=== PATIENT | male | born 1955 | race Hispanic/Latino ===

== ENCOUNTER 2021-06-21 14:05 | Emergency (ER) | payer MEDICARE ==
[2021-06-21 14:10] VITALS: BP 116/77
[2021-06-21] MEDS ORDERED: HYDROcodone/ACETAMINOPHEN 5-325 MG TAB PO ONE (18:46)
--- NOTE | 2021-06-21 18:50 | Event Note ---
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 Patient states he has been off of pain meds for 6 months He denies any new injuries or fever/chills/sweats He states this pain is new and different from his normal pain Search patient in [place] [employer], no pain medications found in the surrounding [facility] or in [place] for the past 2 years Tenderness to palpation of the right hip noted on exam Patient states he is unable to ambulate This initial assessment/diagnostic orders/clinical plan/treatment(s) is/are subject to change based on patients health status, clinical progression and re- assessment by fellow clinical providers in the ED. Further treatment and workup at subsequent clinical providers discretion. Patient/guardian urged not to elope from the ED as their condition may be serious if not clinically assessed and managed. Initial orders include: X-ray Labs
--- NOTE | 2021-06-21 19:34 | XRay Report ---
LUMBAR SPINE 3 VIEWS INDICATION / CLINICAL INFORMATION: acute difficulty with ambulaiton. COMPARISON: None available. FINDINGS: VERTEBRAE: No fracture. No significant malalignment. DISC SPACES:Mild discogenic degenerative disease L2-4. FACET JOINTS:No significant abnormality. ADDITIONAL FINDINGS: None. IMPRESSION: 1. No significant abnormality. Signer Name: Darrick Gordon MD Signed: 06/21/2021 7:29 PM Workstation Name: [id number]
--- NOTE | 2021-06-21 19:37 | XRay Report ---
RIGHT HIP 3 VIEW(S) INDICATION / CLINICAL INFORMATION: acute pain, no injury COMPARISON: None available. FINDINGS: BONES / JOINT(S): No acute fracture or subluxation. 4 cannulated screws are noted within the right hi p with osteonecrosis of right femoral head with moderate secondary degenerative arthrosis and subchon dral collapse. SOFT TISSUES: No significant abnormality. ADDITIONAL FINDINGS: None. Signer Name: Darrick Gordon MD Signed: 06/21/2021 7:32 PM Workstation Name: [id number]
[2021-06-21 19:47] LABS: Basophils # (Auto) 0.1 K/mm3 (0.0-0.1); Basophils % (Auto) 1.1 % (0.0-1.8); Eosinophils % (Auto) 0.4 % (0.0-4.3); Hematocrit 47.7 % (35.5-45.6); Hemoglobin 16.4 gm/dl (11.8-15.2); Lymphocytes % (Auto) 12.3 % (13.4-35.0); Mean Corpuscular HGB Conc 34 % (32-34); Mean Corpuscular Volume 86 fl (84-94); Monocytes # (Auto) 0.5 K/mm3 (0.0-0.8); Monocytes % (Auto) 6.5 % (0.0-7.3); Platelet Count 270 K/mm3 (140-440); Red Blood Count 5.53 M/mm3 (3.65-5.03); Red Cell Distribution Width 13.5 % (13.2-15.2)
[2021-06-21 20:06] LABS: BUN/Creatinine Ratio 18; Blood Urea Nitrogen 18 mg/dL (9-20); Calcium 9.8 mg/dL (8.4-10.2); Hemolysis Index 7
--- NOTE | 2021-06-21 23:30 | Emergency Department Report ---
ED Lower Extremity HPI - General Chief Complaint: Extremity Injury, Lower Stated Complaint: hip pain Time Seen by Provider: 06/21/21 18:13 Source: EMS Mode of arrival: Wheelchair Limitations: Physical Limitation - History of Present Illness Initial Comments: 65-year-old male presents emerge department complaining of a chronic hip injury which occurred about 20 years ago and for which he was on pain management and has been unable to retrieve his medications for some time but now has the means to do so. Again [place] is requesting to have refills of his Lortabs and some Percocet while here in the emergency department. He reports no new injuries, no new pains, no loss of bowel or bladder no saddle paresthesia no progression of his previous injury. Injury did result in surgical fixation. -: Gradual Injury: Hip: Right Type of Injury: blunt Place: home Severity: mild Improves With: nothing Worsens With: nothing Context: other Other Symptoms: other Associated Symptoms: other Treatments Prior to Arrival: cold therapy - Related Data Previous Rx's Medication Instructions Recorded Last Taken Type Ketorolac [Toradol] 10 mg PO Q6H PRN #14 06/21/21 Unknown Rx Allergies Allergy/AdvReac Type Severity Reaction Status Date / Time No Known Allergies Allergy Verified 06/21/21 14:10 ED Review of Systems ROS: Stated complaint: hip pain Other details as noted in HPI Comment: All other systems reviewed and negative ED Past Medical Hx - Past Medical History Previous Medical History?: No - Surgical History Past Surgical History?: No - Medications Home Medications: Home Medications Medication Instructions Recorded Confirmed Last Taken Type Ketorolac [Toradol] 10 mg PO Q6H PRN #14 06/21/21 Unknown Rx ED Physical Exam - General Limitations: Physical Limitation General appearance: alert, in no apparent distress - Head Head exam: Present: atraumatic, normocephalic - Eye Eye exam: Present: normal appearance, PERRL, EOMI Pupils: Present: normal accommodation - ENT ENT exam: Present: normal exam, normal orophraynx, mucous membranes moist - Neck Neck exam: Present: normal inspection, full ROM - Respiratory Respiratory exam: Present: normal lung sounds bilaterally. Absent: respiratory distress, rhonchi, stridor - Cardiovascular Cardiovascular Exam: Present: regular rate, normal rhythm, normal heart sounds. Absent: systolic murmur, diastolic murmur, rubs, gallop - GI/Abdominal GI/Abdominal exam: Present: soft, normal bowel sounds. Absent: tenderness, hyperactive bowel sounds - Rectal Rectal exam: Present: deferred - Extremities Exam Extremities exam: Present: normal inspection, normal capillary refill - Back Exam Back exam: Present: normal inspection - Neurological Exam Neurological exam: Present: alert, oriented X3, CN II-XII intact, normal gait - Psychiatric Psychiatric exam: Present: normal affect, normal mood - Skin Skin exam: Present: warm, dry, intact, normal color. Absent: rash ED Course Vital Signs 06/21/21 14:07 Temperature 98.1 F Pulse Rate 73 Respiratory 16 Rate Blood Pressure 116/77 [Left] O2 Sat by Pulse 100 Oximetry ED Lower Extremity MDM - Lab Data Result diagrams: 06/21/21 19:29 06/21/21 19:29 Critical care attestation.: If time is entered above; I have spent that time in minutes in the direct care of this critically ill patient, excluding procedure time. ED Disposition Clinical Impression: Chronic right hip pain Disposition: 01 HOME / SELF CARE / HOMELESS Is pt being admited?: No Does the pt Need Aspirin: No Condition: Stable Instructions: How to Use Cold Therapy, [id number], Chronic Pain, Adult, Pain Medicine Instructions Prescriptions: Ketorolac [Toradol] 10 mg PO Q6H PRN #14 PRN Reason: Pain Referrals: PRIMARY CARE, [Primary Care Provider] - 3-5 Days ANEESH PAUL MD [Staff Physician] - 3-5 Days
== END 2021-06-21 23:42 | disposition home or self-care (01) ==
LOC: ED 14:05
DX: G89.29 Other chronic pain (principal); M25.551 Pain in right hip
CPT/HCPCS: 36415; 72100; 80048; 85025; 99284